=== PATIENT | female | born 1990 | race Caucasian/White ===

== ENCOUNTER → 2021-10-06 | Outpatient (CLI) | payer OTHER ==
[~2021-10-06] MED LIST: CEFUROXIME500 MG PO; DELSYM30 MG/5 ML PO; FLONASE 0.05% N16 GM; IBUPROFEN600 MG PO; KEFLEX CAP 500500 MG PO; LEVAQUIN500 MG PO; LOPRESSOR 25 MG25 MG PO; MACRODANTIN PO; MAPAP325 MG PO; OMNICEF 300 MG300 MG PO; PHENERGAN 25 MG25 M1 PO; WELLBUTRIN SR150 M1 PO; ZOFRAN4 MG PO
== END ==
LOC: ECHO 10:06
DX: R94.31 Abnormal electrocardiogram [ECG] [EKG] (principal)
CPT/HCPCS: ECHO; 93306

== ENCOUNTER 2021-10-30 18:38 | Emergency (ER) | payer OTHER ==
[2021-10-30 20:25] LABS: HEMOGLOBIN 12.7 gm/dl (12.3-15.3); RED BLOOD COUNT 4.18 M/UL (4.00-5.10); WHITE BLOOD COUNT 7.4 K/UL (4.5-11.0)
[2021-10-30 20:50] LABS: BUN/CREATININE RATIO 17 (0-10)
[2021-10-30] MEDS ORDERED: OMNICEF 300 MG300 MG PO (22:21)
[2021-11-01 22:08] LABS: CHLAMYDIA TRACHOMATIS, NAA Negative (Negative); NEISSERIA GONORRHOEAE, NAA Negative (Negative)
== END 2021-10-30 22:25 | disposition home or self-care (01) ==
LOC: ER1 18:38
PROVIDERS: Student in an Organized Health Care Education/Training Program
DX: N39.0 Urinary tract infection, site not specified (principal)
CPT/HCPCS: 80053; 81001; 83690; 84703; 85025; 87086; 99284